=== PATIENT | male | born 1965 | race Caucasian/White ===

== ENCOUNTER 2017-01-26 19:57 | Emergency (ER) | payer SELFPAY ==
[~2017-01-26] VITALS: Ht 182.9 cm; Wt 74.8 kg
[2017-01-26 20:00] VITALS: BP 118/67
== END 2017-01-26 22:50 | disposition home or self-care (01) ==
LOC: ER 20:00
DX: S60.450A Superficial foreign body of right index finger, initial encounter (principal); W45.0XXA Nail entering through skin, initial encounter; Y93.89 Activity, other specified; Y92.89 Other specified places as the place of occurrence of the external cause; Y99.8 Other external cause status
CPT/HCPCS: 99284; A4606; Z7610